=== PATIENT | female | born 1980 ===

== ENCOUNTER 2017-09-11 23:12 | Emergency (ER) | payer BC, MEDICAID ==
[2017-09-11 23:12] VITALS: BMI 50.8
[2017-09-11 23:35] VITALS: TEMP 98.8
--- NOTE | 2017-09-11 23:55 | ED PDOC ---
Arrival/HPI - General Chief Complaint: Dizziness/Lightheaded Time Seen by Provider: 09/11/17 23:47 Historian: Patient - History of Present Illness Narrative History of Present Illness (Text): 09/11/17 23:55 Savanna Jenkins is a 36 year old female,whose past medical history includes recent gastric sleeve surgery on 08/24/17, obesity, and cholecystectomy, who presents to the Emergency department complaining of light-headedness. Patient states she has been experiencing light-headedess, dizziness, and intermittent headaches for the past few days. Patient notes she has been eating small amounts since undergoing gastric sleeve surgery. Patient denies any fever, chills, chest pain, shortness of breath, nausea, vomiting, diarrhea, urinary symptoms, back pain, neck pain, focal neurological deficits, or any other complaints. Time/Duration: Other (few days) Symptom Onset: Gradual Symptom Course: Unchanged Activities at Onset: Light Context: Home Past Medical History - Provider Review Nursing Documentation Reviewed: Yes - Infectious Disease Hx of Infectious Diseases: None - Tetanus Immunization Tetanus Immunization: Unknown - Past Medical History Past Medical History: No Previous - Cardiac Hx Cardiac Disorders: No - Pulmonary Hx Respiratory Disorders: No - Neurological Hx Neurological Disorder: No - HEENT Hx HEENT Disorder: No - Renal Hx Renal Disorder: No - Endocrine/Metabolic Hx Endocrine Disorders: No - Hematological/Oncological Hx Blood Disorders: No - Integumentary Hx Dermatological Disorder: No - Musculoskeletal/Rheumatological Hx Musculoskeletal Disorders: No - Gastrointestinal Hx Gastrointestinal Disorders: No - Genitourinary/Gynecological Hx Genitourinary Disorders: No - Psychiatric Hx Psychophysiologic Disorder: No Hx Substance Use: No - Surgical History Hx Cholecystectomy: Yes Other/Comment: lap band 2014 - Anesthesia Hx Anesthesia: Yes Hx Anesthesia Reactions: No Hx Malignant Hyperthermia: No - Suicidal Assessment Feels Threatened In Home Enviroment: No Family/Social History - Physician Review Nursing Documentation Reviewed: Yes Family/Social History: Unknown Family HX Smoking Status: Never Smoked Hx Alcohol Use: No Hx Substance Use: No Hx Substance Use Treatment: No Allergies/Home Meds Allergies/Adverse Reactions: Allergies No Known Allergies Allergy (Verified 01/18/16 21:33) Home Medications: Home Meds Medication Instructions Recorded Confirmed Aluminum Hydroxide/Magnesium H 30 ml PO Q6H 09/11/17 09/11/17 [Maalox 30 ml] Biotin 5,000 mcg PO DAILY 09/11/17 09/11/17 Multivitamin [Multivitamins] 1 each PO DAILY 09/11/17 09/11/17 Omeprazole Magnesium [Prilosec Otc] 20 mg PO Q12 09/11/17 09/11/17 Review of Systems - Physician Review All systems were reviewed & negative as marked: Yes - Review of Systems Constitutional: Normal. absent: Fevers Eyes: Normal ENT: Normal Respiratory: Normal. absent: SOB, Cough Cardiovascular: Normal. absent: Chest Pain Gastrointestinal: Normal. absent: Abdominal Pain, Diarrhea, Nausea, Vomiting Genitourinary Female: Normal. absent: Dysuria, Frequency, Hematuria, Urine Output Changes Musculoskeletal: Normal. absent: Back Pain, Neck Pain Skin: Normal Neurological: Headache, Dizziness, Other (+light-headedness) Endocrine: Normal Hemo/Lymphatic: Normal Psychiatric: Normal Physical Exam Vital Signs Reviewed: Yes Vital Signs Temp Pulse Resp BP Pulse Ox 09/11/17 23:35 98.8 F 73 18 123/84 96 Temperature: Afebrile Blood Pressure: Normal Pulse: Regular Respiratory Rate: Normal Appearance: Positive for: Well-Appearing, Non-Toxic, Comfortable Pain Distress: None Mental Status: Positive for: Alert and Oriented X 3 - Systems Exam Head: Present: Atraumatic, Normocephalic Pupils: Present: PERRL Extroacular Muscles: Present: EOMI Conjunctiva: Present: Normal Mouth: Present: Moist Mucous Membranes Neck: Present: Normal Range of Motion. No: Meningeal Signs, MIDLINE TENDERNESS , Paraspinal Tenderness Respiratory/Chest: Present: Clear to Auscultation, Good Air Exchange. No: Respiratory Distress, Accessory Muscle Use Cardiovascular: Present: Regular Rate and Rhythm, Normal S1, S2. No: Murmurs Abdomen: Present: Normal Bowel Sounds. No: Tenderness, Distention, Peritoneal Signs Back: Present: Normal Inspection. No: CVA Tenderness, Midline Tenderness, Paraspinal Tenderness Upper Extremity: Present: Normal Inspection. No: Cyanosis, Edema Lower Extremity: Present: Normal Inspection. No: Edema Neurological: Present: GCS=15, CN II-XII Intact, Speech Normal, Motor Func Grossly Intact, Normal Sensory Function, Normal Cerebellar Funct, Gait Normal, Memory Normal Skin: Present: Warm, Dry, Normal Color. No: Rashes Psychiatric: Present: Alert, Oriented x 3, Normal Insight, Normal Concentration Medical Decision Making ED Course and Treatment: 09/11/17 23:55 Impression: 36 year old female complaining of light-headedness, dizziness, and headache. Differential Diagnosis included but are not limited to: Plan: -- CT Head w/o contrast -- Labs -- Tylenol -- Reassess and disposition Prior Visits: Notes and results from previous visits were reviewed. Progress Notes: 09/12/17 01:45 Reviewed radiology, CT Head shows: Brain: Ventricles are normal in size and configuration. There is no midline shift. There are no intraaxial or extra-axial mass lesions or areas of hemorrhage. There are no abnormal fluid collections. Britton-white differentiation is maintained. Ventricles: See above. Bones: Cranial vault is intact. Soft tissues: unremarkable Sinuses: There is no acute sinusitis. Ears and mastoids: Middle ears and mastoids are unremarkable Orbits: Orbital contents are unremarkable. IMPRESSION: No acute intracranial abnormality - Lab Interpretations Lab Results: 09/12/17 00:11 09/12/17 00:11 Lab Results 09/12/17 00:11: WBC 7.3 D, RBC 4.95, Hgb 13.0, Hct 40.4, MCV 81.6, MCH 26.3, MCHC 32.2, RDW 15.6 H, Plt Count 306, MPV 10.3 09/12/17 00:11: Sodium 140, Potassium 3.6, Chloride 106, Carbon Dioxide 22, Anion Gap 16, BUN 6 L, Creatinine 0.6 L, Est GFR ( Amer) > 60, Est GFR ( Non-Af Amer) > 60, Random Glucose 101, Calcium 9.4, Total Bilirubin 0.7, AST 69 H, ALT 118 H, Alkaline Phosphatase 101, Total Protein 7.3, Albumin 4.1, Globulin 3.2, Albumin/Globulin Ratio 1.3 I have reviewed the lab results: Yes - RAD Interpretation Radiology Orders: 09/11/17 23:59 HEAD W/O CONTRAST [CT] Stat Hide Trimmer: Radiologist - Medication Orders Current Medication Orders: Discontinued Medications Acetaminophen (Tylenol 650mg/20.3ml Solution Ud) 650 mg PO STAT STA Stop: 09/12/17 00:48 Last Admin: 09/12/17 00:55 Dose: 650 mg MAR Pain/Vitals Document 09/12/17 00:55 AD (Rec: 09/12/17 00:55 AD [id number]) Pain Reassessment Is This A Pain ReAssessment? No Presence of Pain Presence of Pain Yes Pain Scale Used Pain Scale Used Numeric Location Pain Location Body Dry Molder Intensity 5 Scale Used Numeric Pain Behavior Facial Grimacing - Scribe Statement The provider has reviewed the documentation as recorded by the Scribnic Moran Provider Scribe Attestation: All medical record entries made by the Scribe were at my direction and personally dictated by me. I have reviewed the chart and agree that the record accurately reflects my personal performance of the history, physical exam, medical decision making, and the department course for this patient. I have also personally directed, reviewed, and agree with the discharge instructions and disposition. Disposition/Present on Arrival - Present on Arrival Any Indicators Present on Arrival: No History of DVT/PE: No History of Uncontrolled Diabetes: No Urinary Catheter: No History of Decub. Ulcer: No History Surgical Site Infection Following: None - Disposition Have Diagnosis and Disposition been Completed?: Yes Diagnosis: Headache Disposition: HOME/ ROUTINE Disposition Time: 02:14 Patient Plan: Discharge Condition: GOOD Discharge Instructions (ExitCare): General Headache (ED) Additional Instructions: Rest/maintain proper caloric intake/follow up with your doctor this week Referrals: Angelo Higgins, [Primary Care Provider] - Follow up with primary Forms: [employer]ist (Estonian)
[2017-09-12 00:24] LABS: HEMATOCRIT 40.4 % (36.0-48.0); MEAN CELL VOLUME 81.6 fl (80.0-105.0); MEAN CORPUSCULAR HEMOGLOBIN 26.3 pg (25.0-35.0); MEAN CORPUSCULAR HGB CONC 32.2 g/dl (31.0-37.0); MEAN PLATELET VOLUME 10.3 fl (7.0-11.0); RED CELL DISTRIBUTION WIDTH 15.6 % (11.5-14.5); WHITE BLOOD COUNT 7.3 10^3/ul (4.5-11.0)
[2017-09-12] MEDS ORDERED: Acetaminophen 650mg/20.3ml solution UD PO STA ×2 (00:45→00:47)
[2017-09-12 00:46] LABS: ALB/GLOB RATIO 1.3 (1.1-1.8); ALKALINE PHOSPHATASE 101 U/L (38-126); ALT/SGPT 118 U/L (7-56); AST/SGOT 69 U/L (14-36); BILIRUBIN,TOTAL 0.7 mg/dL (0.2-1.3); BLOOD UREA NITROGEN 6 mg/dL (7-21); CALCIUM 9.4 mg/dL (8.4-10.5); CARBON DIOXIDE 22 mmol/L (21-33); CHLORIDE 106 mmol/L (98-107); GFR AFRICAN-AMERICAN > 60; GLUCOSE,RANDOM 101 mg/dL (70-110); POTASSIUM 3.6 mmol/L (3.6-5.0); SODIUM 140 mmol/L (132-148); TOTAL PROTEIN 7.3 g/dL (5.8-8.3)
--- NOTE | 2017-09-12 01:41 | CT ---
EXAM: CT Head Without Intravenous Contrast EXAM DATE/TIME: 09/11/2017 11:59 PM CLINICAL HISTORY: 36 years old, female; Signs and symptoms; Dizziness; Additional info: Headache /dizzy TECHNIQUE: Axial computed tomography images of the head/brain without intravenous contrast. All CT scans at this facility use one or more dose reduction techniques, viz.: automated exposure control; ma/kV adjustment per patient size (including targeted exams where dose is matched to indication; i.e. head); or iterative reconstruction technique. COMPARISON: There are no prior studies for comparison. FINDINGS: Brain: Ventricles are normal in size and configuration. There is no midline shift. There are no intra-axial or extra-axial mass lesions or areas of hemorrhage. There are no abnormal fluid collections. Britton-white differentiation is maintained. Ventricles: See above. Bones: Cranial vault is intact. Soft tissues: unremarkable Sinuses: There is no acute sinusitis. Ears and mastoids: Middle ears and mastoids are unremarkable Orbits: Orbital contents are unremarkable. IMPRESSION: No acute intracranial abnormality
[2017-09-12 02:15] VITALS: BP 125/86; PULSE 80; RESP 16; O2SAT 98
== END 2017-09-12 02:24 | disposition home or self-care (01) ==
LOC: ED 23:12
DX: R51 Headache (principal)